=== PATIENT | female | born 1975 ===

== ENCOUNTER → 2018-01-04 | Outpatient (CLI) | payer BC | LOC: MC.RAD 11-21 15:00 | DX: Z12.31 Encounter for screening mammogram for malignant neoplasm of breast (principal); Z98.82 Breast implant status ==

== ENCOUNTER → 2020-06-22 | Outpatient (CLI) | payer BC | LOC: MC.RAD 15:56 | DX: Z12.31 Encounter for screening mammogram for malignant neoplasm of breast (principal); Z98.82 Breast implant status ==